=== PATIENT | female | born 1995 | race Caucasian/White ===

== ENCOUNTER 2025-05-21 09:07 | Outpatient (OUT) | payer OTHER, SELFPAY ==
--- OUTSIDE RECORDS SUMMARY | 2011-04-14 12:17 | XMS_ITS | Continuity of Care Document ---
Author Organization [facility] Address [address] [place] [address] Phone Care Team Providers Care Creative Consultant Name Role Phone Celec DO, Britany Unavailable [...] Diagnoses Date Provider Providers Copied on Encounter [facility], [address] [place], [place], [id number], [place] tel:[phone] [facility] No Information Celec DO Britany. [address] [place] [address], [id number] , [place]. tel:[phone] PREV VISIT, NEW, AGE 12-17 [facility], [address] [place], [place], [id number], [place] tel:[phone] [facility] physical (work) (chief complaint) Routine general medical examination at a health care facilityRoutine or child health check 1 Celec DO Garg. [address] [place] [address], [place], [place], [id number] , [place]. tel:[phone] Family History Family Member Type Diagnosis Age At Onset Paternal uncle Problem (finding) malignant neoplasm of lung Father Problem (finding) Alive and well Problem (finding) Family history of CLOTT ING DISORDER Payers Payer name Insurance type Covered green party ID Authoriza tion(s) No Information Social History [...]
--- OUTSIDE RECORDS SUMMARY | 2025-05-21 09:14 | XMS_ITS | Clinical Summary ---
Author Organization [facility] Address [address] [place] [address] Care Team Providers Care Production Lead Name Role Phone Ramiro Marie MD Primary Care Provider [phone] Social History Tobacco Use Types Packs/Day Years Used Date Smoking Tobacco: Never Assessed Comments Unknown Sex and Gender Information Value Date Recorded Sex Assigned at Not on file Legal Sex Female 6:57 PM EDT Gender Identity Not on file Sexual Orientation Not on file Last Filed Vital Signs Vital Sign Reading Time Taken Comments Blood Pressure 118/80 09/01/2018 12:00 PM EST Pulse - - Temperature - - Respiratory Rate - - Oxygen Saturation - - Inhaled Oxygen Concentration - - Weight 97.7 kg (215 lb 6.4 oz) 09/01/2018 12:00 PM EST Height 167.6 cm (5' 6 ) 09/01/2018 12:00 PM EST Body Mass Index 34.77 09/01/2018 12:00 PM EST Plan of Treatment Not on file Care Teams Production Lead Relationship Specialty Start Date End Date Ramiro Marie MD [address] [place] [address] PCP - General Family Medicine 12/21/22
[2025-05-21 09:47] LABS: Hematocrit 39.7 % (36.0-48.0); Hemoglobin 13.7 g/dL (12.0-16.0); Immature Granulocytes Abs Auto 0.01 10^3/uL (0.00-0.03); Immature Granulocytes Pct Auto 0.2 % (0.0-0.5); Lymphocytes Absolute Auto 2.2 10^3/uL (1.2-3.8); Mean Corpuscular HGB Conc 34.5 g/dL (29.9-35.2); Mean Corpuscular Hemoglobin 30.9 pg (26.7-34.0); Mean Corpuscular Volume 89.4 fL (81.0-99.0); Platelet Count 287 10^3/uL (150-450); Red Blood Count 4.44 10^6/uL (4.20-5.40); White Blood Count 5.2 10^3/uL (4.0-11.0)
[2025-05-21 10:24] LABS: Alanine Aminotransferase 33 U/L (14-59); Albumin Globulin Ratio 1.3; Albumin Level 4.1 g/dL (3.4-5.0); Alkaline Phosphatase 45 U/L (46-116); Anion Gap 14.6; Aspartate Amino Transferase 20 U/L (15-37); Blood Urea Nitrogen 11.0 mg/dL (7.0-18.0); Calcium 9.2 mg/dL (8.5-10.1); Carbon Dioxide 26.7 mmol/L (21.0-32.0); Chloride 103 mmol/L (98-107); Cholesterol 188 mg/dL (<=200); Estimated GFR (African America >60 (>=60 mL/min/1.73m^2); Estimated GFR (Non-African Ame >60 (>=60 mL/min/1.73m^2); Globulin 3.2 g/dL; Glucose 86 mg/dL (74-106); HDL Cholesterol 58 mg/dL (40-60); Potassium 4.3 mmol/L (3.5-5.1); Sodium 140 mmol/L (136-145); Thyroid Stimulating Hormone 0.331 uIU/mL (0.358-3.740); Total Protein 7.3 g/dL (6.4-8.2); Triglycerides 55 mg/dL (<=150); VLDL CHOLESTEROL 11.0 mg/dL
== END 2025-05-21 09:08 | disposition home or self-care (01) ==
LOC: LAB 09:12
PROVIDERS: PCP Family Medicine; Visit Provider Family Medicine
DX: R00.0 Tachycardia, unspecified (principal); R07.9 Chest pain, unspecified
CPT/HCPCS: 36415; 80053; 80061; 84443; 85025; 93242

== ENCOUNTER 2025-05-29 09:06 | Outpatient (OUT) | payer OTHER, SELFPAY ==
--- OUTSIDE RECORDS SUMMARY | 2011-04-14 12:17 | XMS_ITS | Continuity of Care Document ---
Author Organization [facility] Address [address] [place] [address] Phone Care Team Providers Care Post Doctoral Fellow Name Role Phone Celec DO, Britany Unavailable Unavailable Allergies, Adverse Reactions, Alerts Substance Reaction Status Criticality No Known allergies Procedures Procedure Date MEASURE BLOOD OXYGEN LEVEL PREV VISIT, NEW, AGE 12-17 PREV VISIT, NEW, AGE 12-17 Advance Directives Directive Yes / No Effective Date File Name Resuscitation Not Answered N/A N/A Life Support Not Answered N/A N/A Intubation Not Answered N/A N/A Antibiotics Not Answered N/A N/A IV Fluid Support Not Answered N/A N/A Tube Feed Not Answered N/A N/A Other Directive N/A N/A WARNING:The information contained in this section is historical and is provided for information only and does not constitute a legal document or any assurance that the information is still accurate. Please verify the information with the lackey of the legal document before using it for clinical purposes. Encounters Encounter Description Practice Location Reason(s) For Visit Diagnoses Date Provider Providers Copied on Encounter [facility], [address], [place], [id number], [place] tel:[phone] [facility] No Information Celec DO Britany. [address] [place] [address], [id number] , [place]. tel:[phone] PREV VISIT, NEW, AGE 12-17 [facility], [address], [place], [id number], [place] tel:[phone] [facility] physical (work) (chief complaint) Routine general medical examination at a health care facilityRoutine or child health check 1 Celec DO Garg. [address] [place] [address], [place], [place], [id number] , [place]. tel:[phone] Family History Family Member Type Diagnosis Age At Onset Paternal uncle Problem (finding) malignant neoplasm of lung Father Problem (finding) Alive and well Problem (finding) Family history of CLOTT ING DISORDER Payers Payer name Insurance type Covered democrat ID Authoriza tion(s) No Information Social History Type Description Quantity Date Captured Comments Alcohol Use Details Unknown Caffeine Use Details Unknown Tobacco Use Status No Information Smoking Status No Information Sex Female Chief Complaint And Reason For Visit No Information Reason For Referral Reason For Referral No Information Plan Of Treatment Date Type Action Status Goal Urine Microalbumin. Due on A due History Of Present Illness Encounter Date Complaint History Of Prese nt Illness No Information Functional Status Date Functional Assessmen t No Information Instructions Date Instruction Additional Infor mation No Information Assessments Type Assessment Date No Information Patient Care Teams Name Effective Dates (start - stop) Status Members No Information
--- OUTSIDE RECORDS SUMMARY | 2025-05-29 09:11 | XMS_ITS | Clinical Summary ---
Author Organization [facility] Address [address] [place] [address] Care Team Providers Care Preschool Program Director Name Role Phone Ramiro Marie MD Primary Care Provider [phone] Social History Tobacco Use Types Packs/Day Years [...] of Treatment Not on file Care Teams Preschool Program Director Relationship Specialty Start Date End Date Ramiro Marie MD [address] [place] [address] PCP - General Family Medicine 12/21/22
[2025-05-29 11:31] LABS: Free T3 2.85 pg/mL (2.18-3.98); TSH W/ REFLEX FT4 0.436 uIU/mL (0.358-3.740)
== END 2025-05-29 09:07 | disposition home or self-care (01) ==
LOC: LAB 09:08
PROVIDERS: PCP Family Medicine; Visit Provider Family Medicine
DX: R79.89 Other specified abnormal findings of blood chemistry (principal)
CPT/HCPCS: 36415; 84439; 84443; 84481